=== PATIENT | male | born 1980 | race Caucasian/White ===

== ENCOUNTER 2016-03-23 13:04 | Emergency (ER) | payer OTHER ==
[~2016-03-23] VITALS: Ht 188 cm; Wt 77.1 kg
[~2016-03-23 13:04] MED LIST: ACET-73 PO
[2016-03-23 13:11] VITALS: BP 117/2
[2016-03-23] MEDS ORDERED: HYDROCODONE/APAP 5/325MG 1 EACH TABLET PO ONE (13:30)
[2016-03-23] MEDS ORDERED: HYDROCODONE/APAP 5/325MG 1 EACH TABLET ONE (13:51)
== END 2016-03-23 14:46 | disposition home or self-care (01) ==
LOC: ER 13:05
DX: S22.31XA Fracture of one rib, right side, initial encounter for closed fracture (principal); G82.20 Paraplegia, unspecified; Z98.890 Other specified postprocedural states; W19.XXXA Unspecified fall, initial encounter; Y93.23 Activity, snow (alpine) (downhill) skiing, snowboarding, sledding, tobogganing and snow tubing; Y92.89 Other specified places as the place of occurrence of the external cause; Y99.8 Other external cause status
CPT/HCPCS: 71100; 99284; A4606; Z7610